=== PATIENT | male | born 2005 | race Two or more races ===

== ENCOUNTER 2024-10-03 14:35 | Emergency (ER) | payer OTHER ==
[2024-10-03] MEDS ORDERED: Fluorescein 1 MG Ophth Strip EYERT ONE (15:04)
== END 2024-10-03 16:22 | disposition home or self-care (01) ==
LOC: JD.ED 14:35
DX: T15.91XA Foreign body on external eye, part unspecified, right eye, initial encounter (principal); W44.9XXA Unspecified foreign body entering into or through a natural orifice, initial encounter; Y93.89 Activity, other specified
CPT/HCPCS: 65205; 99283; 99283-25; J3490